=== PATIENT | female | born 2000 ===

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

== ENCOUNTER 2018-01-08 11:07 | Emergency (ER) | payer SELFPAY ==
[~2018-01-08] VITALS: Ht 149.9 cm; Wt 65.8 kg
== END 2018-01-08 11:22 | disposition home or self-care (01) ==
LOC: ED 11:07
DX: S61.212A Laceration without foreign body of right middle finger without damage to nail, initial encounter (principal); S61.214A Laceration without foreign body of right ring finger without damage to nail, initial encounter; W26.0XXA Contact with knife, initial encounter; Y92.89 Other specified places as the place of occurrence of the external cause; Y99.0 Civilian activity done for income or pay